=== PATIENT | male | born 1985 | race Caucasian/White ===

== ENCOUNTER 2019-12-11 09:59 | Inpatient (IN) | payer OTHER ==
[~2019-12-11] VITALS: Ht 182.9 cm; Wt 181.4 kg
[~2019-12-11 09:59] MED LIST: CATAFLAM50 MG PO; NABUMETONE500 MG PO; PERCOCET 5/3251 TAB PO
== END 2019-12-20 17:27 | disposition home or self-care (01) | DRG 177 ==
LOC: ER 09:59 → SEC-K 20:18 → MEDJ 20:18 → MEDI 12-12 08:33 → SEC-K 12-12 08:33 → MEDJ 12-12 18:41
PROVIDERS: ADMIT Internal Medicine; ATTEND Internal Medicine
PROC: 4A033R1 Measurement of Arterial Saturation, Peripheral, Percutaneous Approach (ICD-10-PCS; principal; 2019-12-11)
PROC: 4A12X4Z Monitoring of Cardiac Electrical Activity, External Approach (ICD-10-PCS; 2019-12-12)
PROC: 3E0F7GC Introduction of Other Therapeutic Substance into Respiratory Tract, Via Natural or Artificial Opening (ICD-10-PCS; 2019-12-13)
PROC: 05HY33Z Insertion of Infusion Device into Upper Vein, Percutaneous Approach (ICD-10-PCS; 2019-12-14)
DX: U07.1 COVID-19 (principal); J12.89 Other viral pneumonia; R09.02 Hypoxemia; E66.01 Morbid (severe) obesity due to excess calories; M25.562 Pain in left knee; M25.561 Pain in right knee; B34.9 Viral infection, unspecified

== ENCOUNTER 2020-01-02 15:22 | Emergency (ER) | payer OTHER ==
[~2020-01-02] VITALS: Ht 182.9 cm; Wt 154.2 kg
[2020-01-02] MEDS ORDERED: FAMOTIDINE20 MG PO (15:55)
[2020-01-02] MEDS ORDERED: PROAIR HFA8.5 GM IH (15:55)
[2020-01-02] MEDS ORDERED: DEXAMETHASONE6 MG PO (15:55)
[2020-01-03] MEDS ORDERED: PROVENTIL HFA6.7 GM IH (08:19)
[2020-01-03] MEDS ORDERED: METFORMIN HCL500 M1 PO (08:19)
== END 2020-01-03 08:40 | disposition home or self-care (01) ==
LOC: ER 15:22
DX: E11.65 Type 2 diabetes mellitus with hyperglycemia (principal); R35.0 Frequency of micturition; Z79.84 Long term (current) use of oral hypoglycemic drugs